=== PATIENT | male | born 1975 | race Caucasian/White ===

== ENCOUNTER → 2016-10-20 | Outpatient (CLI) | payer BC ==
[2016-10-20 21:03] LABS: ALT 77 U/L (21-72); AST 34 U/L (17-59); Alkaline Phosphatase 46 U/L (38-126); Anion Gap 14 mmol/L; Blood Urea Nitrogen 15 mg/dL (9-20); Calcium 9.7 mg/dL (8.4-10.2); Carbon Dioxide 26 mmol/L (22-30); Chloride 101 mmol/L (98-107); Cholesterol 184 mg/dL (<200); Glucose 95 mg/dL (74-99); HDL Cholesterol 42 mg/dL (40-60); Non-African American GFR(MDRD) >60 (>60 ml/min/1.73 sqM); Potassium 3.8 mmol/L (3.5-5.1); Sodium 141 mmol/L (137-145); Total Bilirubin 0.8 mg/dL (0.2-1.3); Total Protein 7.9 g/dL (6.3-8.2); Triglycerides 120 mg/dL (<150); Uric Acid 5.6 mg/dL (3.5-8.5)
== END | disposition home or self-care (01) ==
LOC: MMGSC 09:20
PROVIDERS: ATTEND Family Medicine
DX: E78.5 Hyperlipidemia, unspecified (principal); M10.9 Gout, unspecified; I10 Essential (primary) hypertension
CPT/HCPCS: 36415; 80053; 80061; 84550

== ENCOUNTER → 2017-04-20 | Outpatient (CLI) | payer BC ==
[2017-04-20 17:28] LABS: ALT 76 U/L (21-72); AST 35 U/L (17-59); Alkaline Phosphatase 43 U/L (38-126); Anion Gap 11 mmol/L; Blood Urea Nitrogen 16 mg/dL (9-20); Calcium 9.3 mg/dL (8.4-10.2); Carbon Dioxide 27 mmol/L (22-30); Chloride 102 mmol/L (98-107); Cholesterol 165 mg/dL (<200); Glucose 86 mg/dL (74-99); HDL Cholesterol 31 mg/dL (40-60); Non-African American GFR(MDRD) >60 (>60 ml/min/1.73 sqM); Potassium 4.1 mmol/L (3.5-5.1); Sodium 140 mmol/L (137-145); Total Bilirubin 0.8 mg/dL (0.2-1.3)
== END | disposition home or self-care (01) ==
LOC: MMGSC 09:30
PROVIDERS: ATTEND Family Medicine
DX: E78.5 Hyperlipidemia, unspecified (principal); I10 Essential (primary) hypertension
CPT/HCPCS: 36415; 80053; 80061

== ENCOUNTER → 2017-10-19 | Outpatient (CLI) | payer BC ==
[2017-10-19 20:47] LABS: ALT 65 U/L (21-72); AST 40 U/L (17-59); Albumin 4.9 g/dL (3.5-5.0); Alkaline Phosphatase 51 U/L (38-126); Anion Gap 14 mmol/L; Blood Urea Nitrogen 18 mg/dL (9-20); Calcium 9.9 mg/dL (8.4-10.2); Carbon Dioxide 26 mmol/L (22-30); Chloride 103 mmol/L (98-107); Cholesterol 180 mg/dL (<200); Glucose 88 mg/dL (74-99); HDL Cholesterol 33 mg/dL (40-60); LDL Cholesterol,Calculated 114 mg/dL (0-99); Potassium 4.3 mmol/L (3.5-5.1); Sodium 143 mmol/L (137-145); Total Bilirubin 1.3 mg/dL (0.2-1.3); Triglycerides 163 mg/dL (<150)
== END | disposition home or self-care (01) ==
LOC: MMGSC 11:32
PROVIDERS: ATTEND Family Medicine
DX: I10 Essential (primary) hypertension (principal); E78.5 Hyperlipidemia, unspecified; M10.9 Gout, unspecified
CPT/HCPCS: 36415; 80053; 80061; 84550

== ENCOUNTER → 2020-02-06 | Outpatient (CLI) | payer BC ==
--- NOTE | 2020-02-06 09:28 | US ---
EXAMINATION TYPE: US liver DATE OF EXAM: 02/06/2020 COMPARISON: NONE CLINICAL HISTORY: R94.5 ABN LIVER FUNCTIONS. Abnormal labs EXAM MEASUREMENTS: Liver Length: 19.4 cm Gallbladder Wall: 0.3 cm CBD: 0.4 cm Right Kidney: 10.8 x 5.3 x 4.3 cm Pancreas: Obscured by bowel gas Liver: Enlarged, difficult to penetrate, heterogeneous with probable fatty sparing near GB Gallbladder: wnl Evidence for sonographic Polanco's sign: No CBD: wnl Right Kidney: wnl IMPRESSION: 1. Hepatomegaly
== END | disposition home or self-care (01) ==
LOC: RADUSWWP 08:44
PROVIDERS: ATTEND Family Medicine
DX: R16.0 Hepatomegaly, not elsewhere classified (principal)
CPT/HCPCS: 76705

== ENCOUNTER → 2023-04-20 | Outpatient (CLI) | payer BC ==
[2023-04-20 16:11] LABS: ALT 74 U/L (10-49); AST 38 U/L (14-35); Albumin/Globulin Ratio 2.08 Ratio (1.60-3.17); Alkaline Phosphatase 56 U/L (41-126); BUN/Creat Ratio 11.22 Ratio (12.00-20.00); Blood Urea Nitrogen 10.1 mg/dL (9.0-27.0); Calcium 9.6 mg/dL (8.7-10.3); Carbon Dioxide 23.8 mmol/L (21.6-31.8); Chloride 105 mmol/L (96-109); Globulin 2.4 d/dL (1.6-3.3); Glucose 87 mg/dL (70-110); Potassium 4.9 mmol/L (3.5-5.5); Sodium 141 mmol/L (135-145); Total Bilirubin 0.7 mg/dL (0.3-1.2); Total Protein 7.4 d/dL (6.2-8.2)
== END | disposition home or self-care (01) ==
LOC: LABWHC1 09:09
PROVIDERS: ATTEND Family Medicine
DX: Z00.00 Encounter for general adult medical examination without abnormal findings (principal)
CPT/HCPCS: 36415; 80053

== ENCOUNTER → 2023-09-18 | Outpatient (CLI) | payer BC ==
--- NOTE | 2023-09-18 09:33 | CT ---
EXAMINATION TYPE: CT abdomen w con CT DLP: 1479.4 mGycm, Automated exposure control for dose reduction was used. DATE OF EXAM: 09/18/2023 9:27 AM COMPARISON: Liver ultrasound 09/26/2022 CLINICAL INDICATION:Male, 47 years old with history of R10.13 epigastric pain; Epigastric pain TECHNIQUE: Standard CT of the abdomen following the administration of 100 cc of Isovue 300 IV contr ast material and oral contrast. Coronal and sagittal reformats were performed. FINDINGS: LOWER CHEST: The visualized lung bases are clear. Bilateral gynecomastia. ABDOMEN LIVER: Diffusely hypoattenuating parenchyma. Enlarged measuring 20.1 cm in CC dimension. GALLBLADDER AND BILE DUCTS: Unremarkable. PANCREAS: Unremarkable. SPLEEN: Unremarkable. ADRENAL GLANDS: Unremarkable. KIDNEYS AND URETERS: No evidence of hydronephrosis. The kidneys enhance symmetrically. Nonobstructive 2 mm left lower pole calculus. Contrast demonstrated within both collecting systems on the delayed p hase. STOMACH AND BOWEL: Stomach and duodenum are unremarkable. No evidence of bowel obstruction. PERITONEUM: No evidence of pneumoperitoneum or free fluid. VASCULATURE: No evidence of aortic aneurysm. MUSCULOSKELETAL: No acute osseous abnormalities LYMPH NODES: No gross evidence for lymphadenopathy. SOFT TISSUE/ABDOMINAL WALL: Unremarkable IMPRESSION: 1. No CT evidence for an acute abdominal process. 2. Hepatic steatosis and hepatomegaly. 3. Nonobstructive left renal calculus.
== END | disposition home or self-care (01) ==
LOC: RADCTMAIN 08:26
PROVIDERS: ATTEND Family Medicine
DX: N20.0 Calculus of kidney (principal); K76.0 Fatty (change of) liver, not elsewhere classified; R16.0 Hepatomegaly, not elsewhere classified
CPT/HCPCS: 74160; Q9967